=== PATIENT | male | born 1940 | race Caucasian/White ===

== ENCOUNTER → 2020-03-11 | Outpatient (CLI) | payer MEDICARE, BC | END | disposition home or self-care (01) | LOC: RAD 13:00 | PROVIDERS: ATTEND General Practice | DX: M51.17 Intervertebral disc disorders with radiculopathy, lumbosacral region (principal); M99.03 Segmental and somatic dysfunction of lumbar region; M25.551 Pain in right hip; M85.88 Other specified disorders of bone density and structure, other site ==